=== PATIENT | female | born 1975 | race African-American/Black ===

== ENCOUNTER → 2021-07-29 14:46 | Outpatient (CLI) | payer MEDICAID, SELFPAY ==
--- NOTE | 2021-07-29 14:46 | MR_ITS ---
PROCEDURE INFORMATION: Exam: MR Left Lower Extremity Joint Without Contrast, Knee Exam date and time: 07/29/2021 2:46 PM Age: 46 years old Clinical indication: Pain; Knee; Left; Additional info: Left knee pain TECHNIQUE: Imaging protocol: MR of the Left lower extremity joint without contrast. Exam focused on the knee. COMPARISON: No relevant prior studies available. FINDINGS: Bones and cartilage: Severe osteoarthritis medial and lateral compartments with prominent osteophytosis. Moderate degenerative change patellofemoral articulation. Multiple loose bodies including a dominant 1.6 cm loose body anterior to the joint line and multiple loose bodies measuring up to 1.9 cm within moderate sized Bryant's cyst. Large effusion. Joint spaces: No joint effusion. Medial meniscus: Unremarkable. No tear. Lateral meniscus: Largely macerated lateral meniscus. Anterior cruciate ligament: Chronic complete ACL tear. Posterior cruciate ligament: Degenerative changes and high degree partial tearing origin of the posterior cruciate ligament. Medial capsule and supporting structures: Unremarkable. No tear. Lateral capsule and supporting structures: Degeneration and probable remote partial tear origin of the lateral collateral ligament. Extensor mechanism of knee: Unremarkable. No tear. Muscles: Unremarkable. Soft tissues: Unremarkable. IMPRESSION: 1. Chronic complete ACL tear. 2. Degenerative changes and high degree partial tearing origin of the posterior cruciate ligament. 3. Largely macerated lateral meniscus. 4. Degeneration and probable remote partial tear origin of the lateral collateral ligament. 5. Severe osteoarthritis medial and lateral compartments with prominent osteophytosis. Moderate degenerative change patellofemoral articulation. 6. Multiple loose bodies including a dominant 1.6 cm loose body anterior to the joint line and multiple loose bodies measuring up to 1.9 cm within moderate sized Bryant's cyst. Large effusion.
== END ==
PROVIDERS: PCP Emergency Medicine; Visit Provider Emergency Medicine
DX: M25.562 Pain in left knee (principal)
CPT/HCPCS: 73721

== ENCOUNTER → 2021-08-25 16:52 | Outpatient (CLI) | payer MEDICAID, SELFPAY ==
[2021-08-25 22:11] LABS: Opiate Screen,Urine Negative ng/ml (<300); Phencyclidine Screen,Urine Negative ng/ml (<25)
[2021-08-25 22:12] LABS: Amphetamine/Metha Screen,Urine Negative ng/ml (<1000)
[2021-08-25 22:13] LABS: Barbiturates Screen,Urine Negative ng/ml (<200)
[2021-08-25 22:14] LABS: Benzodiazepines Screen,Urine Negative ng/ml (<200); Cannabinoid Screen,Urine Negative ng/ml (<50)
[2021-08-25 22:15] LABS: Cocaine Screen,Urine Negative ng/ml (<300)
[2021-08-25 22:16] LABS: Methadone Screen,Urine Negative ng/ml (<300)
== END ==
PROVIDERS: Visit Provider Nurse Practitioner Family
DX: Z79.899 Other long term (current) drug therapy (principal)
CPT/HCPCS: 80305